=== PATIENT | male | born 1965 | race Caucasian/White ===

== ENCOUNTER 2019-02-27 05:48 | Emergency (ER) | payer OTHER ==
[~2019-02-27] VITALS: Ht 177.8 cm; Wt 72.6 kg
[2019-02-27 10:57] VITALS: BP 146/78
== END 2019-02-27 10:58 | disposition home or self-care (01) ==
LOC: ER 05:48
DX: S09.8XXA Other specified injuries of head, initial encounter (principal); F15.10 Other stimulant abuse, uncomplicated; Z21 Asymptomatic human immunodeficiency virus [HIV] infection status; W18.39XA Other fall on same level, initial encounter; Y93.89 Activity, other specified; Y92.89 Other specified places as the place of occurrence of the external cause; Y99.8 Other external cause status

== ENCOUNTER 2019-12-16 19:55 | Inpatient (IN) | payer OTHER ==
[~2019-12-16] VITALS: Ht 177.8 cm; Wt 66.0 kg
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
[2019-12-16 19:56] VITALS: BP 135/73
[2019-12-16 20:26] LABS: HEMATOCRIT 32.1 % (42.0-52.0); HEMOGLOBIN 10.7 gm/dL (14.0-18.0); MCH 28.8 pg (26.0-34.0); MCHC 33.4 g/dL (28.0-37.0); MCV 86.3 fL (80.0-100.0); PLATELET COUNT 249 thou/uL (150-400); RBC 3.71 mil/uL (4.50-6.00); RDW 19.3 % (10.5-14.5); WBC 11.5 thou/uL (4.0-11.0)
[2019-12-16 20:28] LABS: ANION GAP 10 mmol/L (7-16); BUN 18 mg/dL (7-18); CALCIUM 8.8 mg/dL (8.5-10.1); CHLORIDE 99 mmol/L (98-107); CO2 25 mmol/L (21-32); CREATININE 1.5 mg/dL (0.7-1.3); GLUCOSE 110 mg/dL (74-106); POTASSIUM 3.4 mmol/L (3.5-5.1); SODIUM 134 mmol/L (136-145)
[2019-12-16 20:36] LABS: TROPONIN-I <0.06 ng/mL (<0.06)
[2019-12-16 20:38] LABS: URINE BILIRUBIN NEGATIVE (Negative); URINE BLOOD TRACE (Negative); URINE CLARITY CLEAR; URINE COLOR YELLOW; URINE GLUCOSE-RANDOM* NEGATIVE (Negative); URINE KETONES NEGATIVE (Negative); URINE LEUKOCYTES-REFLEX NEGATIVE (Negative); URINE NITRITE-REFLEX NEGATIVE (Negative); URINE PROTEIN (DIPSTICK) 2+ (Negative); URINE SPECIFIC GRAVITY 1.025 (1.005-1.035); URINE UROBILINOGEN 0.2 E.U./dl (0.2-1.0)
[2019-12-16 20:54] LABS: SQUAMOUS 0-3 Few /LPF (0-3)
[2019-12-16 20:55] LABS: BACTERIA-REFLEX None Seen /HPF (None Seen); CASTS None Seen /LPF (None Seen); CRYSTALS None Seen /LPF (None Seen); MUCUS 0-3 Light strn/LPF (None Seen); URINE RBC None Seen /HPF (0-2); URINE WBC-REFLEX 0-5 Rare /HPF (0-5)
[2019-12-16 20:58] LABS: ABSOLUTE NEUTROPHILS 8.2 thou/uL (1.4-8.2); ANISOCYTOSIS 2+
[2019-12-16] MEDS ORDERED: MITIGARE0.6 MG PO (21:47)
[2019-12-16] MEDS ORDERED: FAMOTIDINE 20 M20 MG PO (21:48)
[2019-12-16] MEDS ORDERED: IBUPROFEN 800800 M1 PO (21:48)
[2019-12-16] MEDS ORDERED: SYMTUZA 800-151 EACH PO (21:49)
[2019-12-16] MEDS ORDERED: FISH OIL 1,0001 EAC9 PO (21:49)
[2019-12-16] MEDS ORDERED: TIVICAY50 MG PO (21:50)
[2019-12-16 22:38] VITALS: BP 142/63
--- NOTE | 2019-12-17 00:08 | NUR ---
PT ARRIVED TO THE UNIT VIA ONE RN ESCORT ON A GURNEY. PT WAS ABLE TO AMBULATE TO THE BED BY SELF. PT'S DICHARGE FOCUS IS ON HOUSING. PT DOES NOT HAVE A SPECIFIC HOME TO GO BACK TO AND WANTS TO GO TO SON'S HOUSE IN [place]. PT ARRIVED TO THE UNIT WITH TWO MEDICATION IN BOTTLE. IT WILL STAY IN THE ROOM WITH THE PATIENT ATLLOLA QURESHI COVID IS RULED OUT. PT IS STABLE. TEMPERATURE STILL RUNNING FEBRILE AT 101.F, TYLENOL WAS PROVIDED. STILL COMPLAINING OF CHEST PAIN RELATED TO COUGHING. REPORT GIVEN TO NURSE HENRI FROM ICU. SIGNING OFF NOW
[2019-12-17 03:42] VITALS: BP 120/79
--- NOTE | 2019-12-17 06:56 | NUR ---
PT ADMITTED TO ROOM 256 AT 2300. REMAINS A&O X4. C/O OF CHEST PAIN MIDSTERNAL RADIATING TO BOTH SIDES. PAIN REDUCED WITH HYDROCODONE 5/325 MG X1. PT ABLE TO AMBULATE WITH STAND-BY ASSIST. REMAINS ON ROOM AIR, SAT > 92%
--- NOTE | 2019-12-17 07:54 | EKG ---
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 : 1965 Requested By: Nagi Valenzuela Order Number: [id number] MD: Josiah Pepper Measurements Intervals [place] Rate: 92 P: 67 DC: 120 QRS: 42 QRSD: 90 T: 88 QT: 375 QTc: 464 Interpretive Statements Sinus rhythm Probable LVH with secondary repol abnrm Baseline wander in lead(s) V6 No previous ECG available for comparison Electronically Signed On 12-17-2019 7:53:32 CDT by Josiah Pepper [email or web address] <ELECTRONICALLY SIGNED> By: Josiah Pepper MD, [facility] 12/17/19 0753 03 03 Josiah Pepper MD, [facility] /EPI
[2019-12-17 08:00] VITALS: BP 124/83
[2019-12-17 09:42] LABS: CALCIUM 8.4 mg/dL (8.5-10.1); CREATININE 1.2 mg/dL (0.7-1.3); MAGNESIUM 1.9 mg/dL (1.8-2.4); POTASSIUM 3.2 mmol/L (3.5-5.1)
[2019-12-17 11:32] VITALS: BP 128/81
--- NOTE | 2019-12-17 14:43 | NUR ---
INITIAL ASSESSMENT: Received consult. ROGERS reviewed chart and spoke with attending physician. Nursing notes state pt is homeless. Pt was admitted from [facility] due to fevers. Pt is currently in Enhanced Isolation to r/o COVI-19. First test is negative. Awaiting input from ID if second test will be ordered. Pt with hx of HIV. ROGERS spoke with pt via phone. Introduced role of ROGERS. Pt appears to be alert/orientated x 4. Pt reports he has been at [facility] for about a month. Pt states his son lives in [place]. Pt confirms his plan is to return to [facility] upon discharge. Pt is normally independent with ambulation at the facility. ROGERS spoke with [facility] liaison who states that pt was admitted as skilled on 11/20 and then has transitioned to LTC. Facility staff has discussed pt moving into their RCF. Per Fabiola, pt [place]. ROGERS notified UR RN. Awaiting face sheet from the facility with [place] number. ROGERS faxed clinical info to facility for review. ROGERS is following to assist as needed with discharge planning.
[2019-12-17 15:56] VITALS: BP 140/86
--- NOTE | 2019-12-17 19:45 | NUR ---
ASSUMED CARE APPROX 0700. PT ALERT AND ORIENTED X4. ASSESSMENTS CHARTED AND VSS. PT C/O HEADACHE AND STERNAL PAIN THIS SHIFT. PT REPORTS PAIN RELIEF WITH MEDICATION. SR ON TELE MONITOR. COVID RESULTS NEGATIVE AND DR. SMITH NOTIFIED. PT KEPT IN ISOLATION PER DR. JONES. PT RESTING COMFORTABLY IN BED. WILL CONTINUE TO MONITOR.
--- NOTE | 2019-12-17 23:07 | NUR ---
PT WANTS RN TO ASSIST IN REACHING OUT TO SON WHO LIVES IN [place]. [phone] WILL ATTEMPT TO REACH OUT
[2019-12-18 00:21] VITALS: BP 133/77
--- NOTE | 2019-12-18 01:52 | NUR ---
UPON INITIAL ASSESSMENT PT'S ROOM WAS WARM AND PT HAD A MINOR TEMP OF 100F. SINCE THEN, THE ROOM HAS BEEN COOLED DOWN, FAN WAS TURNED ON, AND TYLENOL HAS BEEN GIVEN. PT STILL COMPLAINS OF 7/10 PX AT THE HEAD, STATING THAT IT WAS BURNING. HYDROCODONE WAS ADMINISTERED PER SCHEDULE. PT'S FOREHEAD REDNESS IS SUBSIDING SINCE YESTERDAY BUT STILL PRESENT. PT HAS BEEN UP AD GEORGE AND STEADY ON HIS FEET. VS ARE STABLE BESIDES THE TEMPERATURE. NO SPECIFIC CONCERNS FROM THE PT EXCEPT TO KNOW WHEN HE WILL BE DISCHARGED, AND REQUESTED THAT RN TRY TO GET IN CONTACT WITH HIS SON CHACORTA. ATTEMPT WAS MADE BUT UNSUCCESSFUL. DISCREET VOICEMAIL WAS LEFT FOR THE NUMBER NOT EXPOSING PT'S SENSITIVE MEDICAL DETAILS, ONLY REQUESTING THAT IF SON WANTED TO SPEAK, THAT HE SHOULD CALL BACK AT THE NUMBER FOR 3W. WILL CONTINUE TO MONITOR AND UPDATE NECESSARY. WILL RECHECK TEMP IN THE MORNING
[2019-12-18 04:08] VITALS: BP 115/69
[2019-12-18 07:47] VITALS: BP 128/71
--- NOTE | 2019-12-18 07:58 | EKG ---
[facility] [address] [place] [address] ELECTROCARDIOGRAM REPORT Name: HERMES CHIU Room #: 356-P ADM IN M.R.#: [id number] Admission: 12/16/19 Attend Phys: Berny Ang MD Discharge: Date of : 69 Report #: [id number] THIS REPORT FOR: cc: Khanh Adams MD, Shyam MD Lundgren,Josiah Sharif MD [facility] ~ THIS REPORT FOR: //name// 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 ACEVEDO : 1965 Requested By: Gin Villatoro Order Number: [id number] MD: Josiah Pepper Measurements Intervals [place] Rate: 60 P: 65 ME: 147 QRS: 18 QRSD: 99 T: 61 QT: 479 QTc: 479 Interpretive Statements Sinus rhythm Borderline prolonged QT interval Compared to ECG 12/16/2019 20:04:22 No significant changes Electronically Signed On 12-18-2019 7:57:39 CDT by Josiah Pepper [email or web address] <ELECTRONICALLY SIGNED> By: Josiah Pepper MD, [facility] 12/18/19 0757 8 8 Josiah Pepper MD, [facility] /EPI
[2019-12-18 08:29] LABS: HEMATOCRIT 30.4 % (42.0-52.0); HEMOGLOBIN 10.1 gm/dL (14.0-18.0); MCH 29.1 pg (26.0-34.0); MCHC 33.1 g/dL (28.0-37.0); RBC 3.46 mil/uL (4.50-6.00); RDW 19.6 % (10.5-14.5); WBC 6.2 thou/uL (4.0-11.0)
[2019-12-18 08:57] LABS: CREATININE 1.1 mg/dL (0.7-1.3); POTASSIUM 3.8 mmol/L (3.5-5.1)
[2019-12-18 11:55] VITALS: BP 126/71
--- NOTE | 2019-12-18 14:36 | NUR ---
SW reviewed chart and spoke with nursing and attending physician. Pt is progressing towards goals for discharge. Discharge back to [facility] is anticipated for tomorrow. SW notified [facility] liaison, who confirms they are able to accept pt back. SW spoke with pt via phone to provide update. Pt is aware and agreeable with plan. SW is following to assist as needed with discharge planning.
[2019-12-18 16:11] VITALS: BP 136/104
--- NOTE | 2019-12-18 19:31 | NUR ---
PT IS A&OX3, PT IS CONTINUING IV ABX AND PAIN MANAGEMENT, PT IS ON ISOLATION TO R/O COVID , PT'S SECOND COVID TEST HAS DONE AT TODAY 1330PM, PT IS 2000ML/24HR FR, BUT PT DOES NOT FOLLOW FR WELL , PT MAY DC TO SNF TOMORROW.
[2019-12-18 19:40] VITALS: BP 156/90
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
--- NOTE | 2019-12-18 22:34 | NUR ---
PLUMBER AND TINNER NOTIFIED OF COVID #2 BEING NEGATIVE.
--- NOTE | 2019-12-19 00:37 | NUR ---
DR FELICIANO CALLED TO SEE IF WE CAN CHANGE STAUS FROM CC TELE TO M/S TELE. DR CUEVA GAVE THE ORDER.
[2019-12-19 01:18] VITALS: BP 154/87
--- NOTE | 2019-12-19 01:24 | NUR ---
PATIENT TRANSFERED TO 464 ON 4W. REPORT GIVEN TO JOSSUE MARY.HOME MEDS SENT WITH PATIENT NAD GIVEN TO JOSSUE MARY.
--- NOTE | 2019-12-19 06:00 | NUR ---
Pt. rested quietly at intervals during the night when checked on during frequent rounds. Given po tylenol for c/o a headache (see emar) with some relief noted. NO c/o shortness of breath.
[2019-12-19 07:35] VITALS: BP 145/92
[2019-12-19] MEDS ORDERED: COREG6.25 MG PO (12:15)
[2019-12-19] MEDS ORDERED: LISINOPRIL5 MG PO (12:15)
[2019-12-19] MEDS ORDERED: CEFDINIR300 MG PO (12:17)
[2019-12-19] MEDS ORDERED: VALTREX 500 MG500 MG PO (12:18)
[2019-12-19 15:19] VITALS: BP 134/71
[2019-12-19 20:00] VITALS: BP 132/73
--- NOTE | 2019-12-19 20:41 | NUR ---
Assumed pt care this am, VS stable pt is up ad kandy and steady on his gait. On fluids restriction of 2000 cc for 24 hours, 1000cc consumed for the day shift. Headache managed with medication, diet is well tolerated. POC followed with no signs or verbalizations of distress. DAily weight emphazied and endorsed tothe shift coordinator. Dc orders given awaiting feed back from pillowcase turner since to is to go back to facility.
--- NOTE | 2019-12-20 05:53 | NUR ---
VSS-AFEBRILE. LUNGS CLEAR-ROOM AIR. RESTED WELL THROUGH NIGHT WITH FEW NEEDS. ORAL PAIN MEDICATION RELIEVED HEADACHE EARLY IN SHIFT. OOB WITH SBA, CAN BE IMPULSIVE AND FORGET TO CALL FOR ASSISTANCE. FALL PRECAUTIONS IN PLACE.
[2019-12-20 09:24] VITALS: BP 146/85
--- NOTE | 2019-12-20 11:41 | NUR ---
CARE TEAM INDICATED THAT PT IS MEDCIALLY STABLE TO DC BACK TO CENTER SKILLED THIS DAY. CHART COPY ORDERED. ORDERS FAXED ALONG WIHT NEGATIVE COVID TESTS. SUE GOMEZ ARRANGED FOR 1330 THIS DAY. CM TO NOTIFY PT'S SON. REPORT TO BE CALLED TO . CASE CLOSED.
--- NOTE | 2019-12-20 14:14 | NUR ---
Guille left discharge document and medicaiton on the floor:Lillian Renee. The staff talked to the staff called Elissa at [facility] ( [address] [place] [address] [phone]) on the phone of [phone] at 2:10pm. Angela stated that she would talk her director to figure out how to get the medication and the document and would call back on [phone].
== END 2019-12-20 13:50 | DRG 974 ==
LOC: ER 19:55 → EROBS 22:22 → 3W 22:22 → 4W 12-19 01:12
PROVIDERS: Emergency Medicine; Nurse Practitioner; Nurse Practitioner Family; ADMIT Hospitalist; ATTEND Hospitalist
DX: A41.9 Sepsis, unspecified organism (principal); N17.0 Acute kidney failure with tubular necrosis; B20 Human immunodeficiency virus [HIV] disease; I42.9 Cardiomyopathy, unspecified; K86.1 Other chronic pancreatitis; L03.811 Cellulitis of head [any part, except face]; R91.1 Solitary pulmonary nodule; I25.10 Atherosclerotic heart disease of native coronary artery without angina pectoris; M10.9 Gout, unspecified; K21.9 Gastro-esophageal reflux disease without esophagitis; F17.210 Nicotine dependence, cigarettes, uncomplicated; Z20.828 Contact with and (suspected) exposure to other viral communicable diseases; R59.0 Localized enlarged lymph nodes; K52.9 Noninfective gastroenteritis and colitis, unspecified; F19.10 Other psychoactive substance abuse, uncomplicated; L92.8 Other granulomatous disorders of the skin and subcutaneous tissue; I25.2 Old myocardial infarction; Z71.6 Tobacco abuse counseling; Z59.0 Homelessness; Z79.899 Other long term (current) drug therapy
CPT/HCPCS: 10045; 10879